=== PATIENT | female | born 1980 | race Caucasian/White ===

== ENCOUNTER → 2016-07-22 | Outpatient (CLI) | payer OTHER | LOC: LABWHC1 09:25 | PROVIDERS: ATTEND Obstetrics & Gynecology | DX: Z13.29 Encounter for screening for other suspected endocrine disorder (principal); Z13.1 Encounter for screening for diabetes mellitus; Z13.220 Encounter for screening for lipoid disorders | CPT/HCPCS: 36415; 80061; 82947; 84439; 84443 ==

== ENCOUNTER → 2016-07-26 | Outpatient (CLI) | payer OTHER ==
--- NOTE | 2016-07-27 07:47 | MM ---
Reason for exam: screening (asymptomatic). Baseline mammogram. Physical Findings: Nurse did not find any significant physical abnormalities on exam. MG 3D Screening Mammo W/Cad Bilateral CC and MLO view(s) were taken. The breast tissue is extremely dense which could obscure a lesion on mammography. Finding: There is a typically benign 6 mm equal density (isodense), circumscribed round mass located 5 cm from the nipple in the upper inner quadrant, posterior position of the right breast consistent with probable lymph node. These results were verbally communicated with the patient and result sheet given to the patient on 07/26/16. ASSESSMENT: Probably benign, BI-RAD 3 RECOMMENDATION: Follow-up diagnostic mammogram of the right breast in 6 months.
== END | disposition home or self-care (01) ==
LOC: RADMAMWWP 14:56
PROVIDERS: ATTEND Obstetrics & Gynecology
DX: Z12.31 Encounter for screening mammogram for malignant neoplasm of breast (principal)
CPT/HCPCS: 77063; G0202

== ENCOUNTER → 2016-09-29 | Outpatient (CLI) | payer OTHER ==
[2016-09-29 13:59] LABS: CH 32.6; CHCM 35.2; HCT 40.9 % (34.0-46.0); HGB 14.1 gm/dL (11.4-16.0); MCH 31.9 pg (25.0-35.0); MCHC 34.4 g/dL (31.0-37.0); MCV 92.7 fL (80.0-100.0); Mean Platelet Volume 8.5; RBC 4.41 m/uL (3.80-5.40); RDW 12.4 % (11.5-15.5); WBC 10.6 k/uL (3.8-10.6)
[2016-09-29 14:25] LABS: Glucose 83 mg/dL (74-99); Non-African American GFR(MDRD) >60 (>60 ml/min/1.73 sqM)
[2016-09-29 14:55] LABS: Hepatitis B Surface Ag Index 0.06
[2016-09-30 07:29] LABS: HIV-1/HIV-2 Ab Screen NONREAC (NON REAC)
== END | disposition home or self-care (01) ==
LOC: LABWHC1 13:39
PROVIDERS: ATTEND Obstetrics & Gynecology
DX: Z34.81 Encounter for supervision of other normal pregnancy, first trimester (principal)
CPT/HCPCS: 36415; 82565; 82947; 85027; 86762; 86780; 86850; 86900; 86901; 87340; 87389

== ENCOUNTER → 2017-02-01 | Outpatient (CLI) | payer OTHER ==
[2017-02-01 17:33] LABS: CH 33.8; CHCM 34.3; HCT 38.5 % (34.0-46.0); HDW 2.57; HGB 13.1 gm/dL (11.4-16.0); MCH 33.6 pg (25.0-35.0); MCHC 33.9 g/dL (31.0-37.0); MCV 99.1 fL (80.0-100.0); Mean Platelet Volume 8.9; RBC 3.89 m/uL (3.80-5.40); RDW 13.6 % (11.5-15.5); WBC 7.8 k/uL (3.8-10.6)
== END | disposition home or self-care (01) ==
LOC: LABWHC1 16:17
PROVIDERS: ATTEND Obstetrics & Gynecology
DX: Z34.82 Encounter for supervision of other normal pregnancy, second trimester (principal); Z3A.00 Weeks of gestation of pregnancy not specified
CPT/HCPCS: 36415; 82950; 85027

== ENCOUNTER 2017-03-17 09:55 | Outpatient (CLI) | payer OTHER ==
[2017-03-17 10:15] VITALS: BP 122/69; PULSE 89; RESP 18; TEMP 99
--- NOTE | 2017-03-20 19:34 | P.MSEPDOC ---
Presenting Problems - Arrival Data Date of Arrival on Unit: 03/17/17 Time of Arrival on Unit: 10:00 Mode of Transport: Ambulatory - Complaint OB-Reason for Admission/Chief Complaint: NST Comment: Pt sent to triage with order for NST, usually has done in office, office is closed today. NST's ordered for Advanced maternal age and resolving echogenic bowel. Medical History - Information : 3 Para: 2 Term: 2 : 0 Abortions: Spontaneous or Elective: 0 Number of Living Children: 2 - Gestational Age Gestational Age by NICOLETTE (wks/days): 33 Weeks and 6 Days Review of Systems - Review of Systems Constitutional: No problems Breast: No problems ENT: No problems Cardiovascular: No problems Respiratory: No problems Gastrointestinal: No problems Genitourinary: No problems Musculoskeletal: No problems Neurological: No problems Skin: No problems Vital Signs - Temperature Temperature: 99.0 F Temperature Source: Temporal Artery Scan - Pulse Pulse Oximetery Pulse Rate: 89 Pulse Assessment Method: Automatic Cuff - Respirations Respiratory Rate: 18 Oxygen Delivery Method: Room Air - Blood Pressure Right Arm Blood Pressure: 122/69 Blood Pressure Mean: 86 Blood Pressure Source: Automatic Cuff Medical Screen Scoring (Pre) - Cervical Exam Dilation: Exam Deferred - Uterine Contractions Frequency: N/A Duration: N/A Intensity: N/A - Maternal Vital Signs Maternal Temperature: N/A Maternal Blood Pressure: N/A Signs of Preeclampsia: N/A Maternal Respirations: N/A - Pain Assessment Pain Scale Used: Numeric (1 - 10) Pain Intensity: 0 - Maternal Trauma Maternal Trauma: N/A - Assessment Baseline FHR: 125 Heart Rate - NICHD Category: Category I (Normal) = 0 NST: Reactive Position: N/A Station: N/A - Total Score Total Score (Pre): 0 - Level of Risk Level of Risk: Low (0-5) Physician Notification (Pre) - Physician Notified Physician Notified Date: 03/17/17 Physician Notified Time: 10:25 Physician/Practitioner Notifed:: Dr Man Crisostomo Order Received: Yes - Notification Comment Comment: Reactive NST- Ok to discharge pt home Disposition - Disposition OB Disposition: Discharge to home Discharge Date: 03/17/17 Discharge Time: 10:40 I agree with the RN Medical Screening Exam: Yes Risk & Benefit of care provided described in d/c instruction: Yes Diagnosis: SUPERVISION OF ELDERLY MULTIGRAVIDA, THIRD TRIMESTER
== END 2017-03-17 10:40 | disposition home or self-care (01) ==
LOC: FBPOP 09:55
PROVIDERS: ATTEND Obstetrics & Gynecology
DX: O09.523 Supervision of elderly multigravida, third trimester (principal); Z3A.33 33 weeks gestation of pregnancy
CPT/HCPCS: 59025

== ENCOUNTER → 2017-04-14 | Outpatient (CLI) | payer OTHER | END | disposition home or self-care (01) | LOC: FBPOP 12:59 | PROVIDERS: ATTEND Obstetrics & Gynecology | DX: O09.523 Supervision of elderly multigravida, third trimester (principal) | CPT/HCPCS: 59025; 99213 ==

== ENCOUNTER 2017-04-22 16:36 | Outpatient (CLI) | payer OTHER ==
[2017-04-22 17:11] VITALS: BP 124/80; PULSE 93; RESP 16; TEMP 97.2
[2017-04-22 17:16] LABS: Appearance,Urine Cloudy (Clear); Bacteria,Urine Rare /hpf; Bilirubin,Urine Negative (Negative); Blood,Urine Negative (Negative); Color,Urine Yellow; Glucose,Urine (UA) Negative (Negative); Ketones,Urine 4+ (Negative); Leukocyte Esterase,Urine Large (Negative); Mucus,Urine Moderate /hpf; Nitrite,Urine Negative (Negative); Protein,Urine 1+ (Negative); RBC,Urine 7 /hpf (0-5); Specific Gravity,Urine 1.028 (1.001-1.035); Squamous Epithelial Cell,Urine 18 /hpf (0-4); Urobilinogen,Urine <2.0 mg/dL (<2.0); WBC,Urine 63 /hpf (0-5)
--- NOTE | 2017-04-25 08:37 | P.MSEPDOC ---
Presenting Problems - Arrival Data Date of Arrival on Unit: 04/22/17 Time of Arrival on Unit: 16:35 Mode of Transport: Ambulatory - Complaint OB-Reason for Admission/Chief Complaint: Other Comment: vomiting since 3 pm. contx. dilated in office on last visit. scheduled induction on monday. "not feeling well" Medical History - Information : 3 Para: 2 Term: 2 : 0 Abortions: Spontaneous or Elective: 0 Number of Living Children: 2 - Gestational Age Gestational Age by NICOLETTE (wks/days): 39 Weeks and 0 Days - History Comment: vomiting today. not feeling well. contx. Review of Systems - Review of Systems Constitutional: No problems Breast: No problems ENT: No problems Cardiovascular: No problems Respiratory: No problems Gastrointestinal: No problems Genitourinary: No problems Musculoskeletal: No problems Neurological: No problems Skin: No problems Vital Signs - Temperature Temperature: 97.2 F Temperature Source: Tympanic - Pulse Right Radial Pulse Rate: 93 Pulse Assessment Method: Automatic Cuff - Respirations Respiratory Rate: 16 - Blood Pressure Right Arm Blood Pressure: 124/80 Blood Pressure Mean: 94 Blood Pressure Source: Automatic Cuff Medical Screen Scoring (Pre) - Cervical Exam Dilation: Exam Deferred Effacement: Exam Deferred Membranes: Intact - Uterine Contractions Frequency: > 5 minutes apart = 1 - Maternal Vital Signs Maternal Temperature: N/A Maternal Blood Pressure: N/A Signs of Preeclampsia: N/A Maternal Respirations: N/A - Pain Assessment Pain Location and Character: Lower, Abdomen Pain Scale Used: Numeric (1 - 10) Pain Intensity: 3 Pain Description: Aching, Cramping Pain Frequency: Constant Pain Behavior: Vocalization, Vomiting Pain Aggravating Factors: Position - Maternal Trauma Maternal Trauma: N/A - Assessment Baseline FHR: 130 Heart Rate - NICHD Category: Category I (Normal) = 0 Position: N/A - Total Score Total Score (Pre): 1 Medical Screen Scoring (Post) - Cervical Exam Dilation: 0 cm = 0 Membranes: Intact - Uterine Contractions Frequency: > 5 minutes apart = 1 Duration: N/A Intensity: N/A - Maternal Vital Signs Maternal Temperature: N/A Maternal Blood Pressure: N/A Signs of Preeclampsia: N/A Maternal Respirations: N/A - Pain Assessment Pain Intensity: 0 Pain Management Goal: 0 - Maternal Trauma Maternal Trauma: N/A - Total Score Total Score (Post): 1 - Post Treatment Level of Risk Post Treatment Level of Risk: Low (0-5) Physician Notification (Post) - Physician Notified Physician Notified Date: 04/22/17 Physician Notified Time: 18:00 Physician/Practitioner Notified:: Dr Conway Spoke With: Dr Conway New Order Received: Yes - Notification Comment Comment: cervix remains 3.5/70, irregular contractions, pain 310, pt feeling hungry and requesting ice chips. Offered to stay in triage x one hour and pt request dc home. Disposition - Disposition OB Disposition: Discharge to home Discharge Date: 04/22/17 Discharge Time: 18:07 I agree with the RN Medical Screening Exam: Yes Risk & Benefit of care provided described in d/c instruction: Yes Diagnosis: FALSE LABOR AT OR AFTER 37 COMPLETED WEEKS OF GESTATION
== END 2017-04-22 18:20 | disposition home or self-care (01) ==
LOC: FBPOP 16:36
PROVIDERS: ATTEND Obstetrics & Gynecology
DX: O47.1 False labor at or after 37 completed weeks of gestation (principal); O21.2 Late vomiting of pregnancy; Z3A.39 39 weeks gestation of pregnancy
CPT/HCPCS: 59025; 81001; 99213

== ENCOUNTER → 2017-10-06 | Outpatient (CLI) | payer OTHER ==
--- NOTE | 2017-10-09 08:34 | MM ---
Reason for exam: additional evaluation requested from prior study. Last mammogram was performed 1 year and 2 months ago. Physical Findings: Nurse did not find any significant physical abnormalities on exam. MG 3D Diag Mammo W/Cad [facility]LIN Bilateral CC and MLO view(s) were taken. Prior study comparison: July 26, 2016, bilateral MG 3d screening mammo w/cad. The breast tissue is extremely dense which could obscure a lesion on mammography. No suspicious abnormality. The previously seen circumscribed right mass is no longer visualized and may have represented a lymph node or cyst, likely resolved. These results were verbally communicated with the patient and result sheet given to the patient on 10/06/17. ASSESSMENT: Negative, BI-RAD 1 RECOMMENDATION: Routine screening mammogram of both breasts at age 41. (or sooner if clinically indicated)
== END | disposition home or self-care (01) ==
LOC: RADMAMWWP 13:41
PROVIDERS: ATTEND Obstetrics & Gynecology
DX: R92.8 Other abnormal and inconclusive findings on diagnostic imaging of breast (principal)
CPT/HCPCS: 77062; 77066

== ENCOUNTER → 2019-02-07 | Outpatient (CLI) | payer OTHER | END | disposition home or self-care (01) | LOC: LABWHC1 16:31 | PROVIDERS: ATTEND Obstetrics & Gynecology | DX: Z53.9 Procedure and treatment not carried out, unspecified reason (principal) ==

== ENCOUNTER → 2019-02-07 | Outpatient (CLI) | payer OTHER ==
[2019-02-07 18:00] LABS: T4, Free (Free Thyroxine) 0.78 ng/dL (0.78-2.19)
--- NOTE | 2019-02-08 07:19 | US ---
EXAMINATION TYPE: US pelvis complete transvag DATE OF EXAM: 02/07/2019 COMPARISON: NONE CLINICAL HISTORY: N92.1 Breakthru bleeding w/IUD,. Intermittent spotting since 12/10. IUD placement 1. 5 years ago. Bloating TECHNIQUE: Transvaginal (TV) and Transabdominal (TA) . Transabdominal sonographic images of the pel vis were acquired. Transvaginal sonographic images were medically necessary to better assess the fol lowing anatomy: IUD Date of LMP: 11/09 EXAM MEASUREMENTS: Uterus: 8.2 x 4.0 x 5.1 cm Endometrial Stripe: 0.5 cm Right Ovary: 4.0 x 1.9 x 1.8 cm Left Ovary: 2.8 x 1.8 x 1.8 cm 1. Uterus: Anteverted 2. Endometrium: IUD visualized within body of uterus. Fundal lesion is heterogenous and circumscribe d measuring 8.2 x 4.0 cm. 3. Right Ovary: follicles noted, physiologic 4. Left Ovary: follicles noted, physiologic 5. Bilateral Adnexa: appears wnl 6. Posterior cul-de-sac: trace amount of free fluid IMPRESSION: 1. Fundal lesion, likely leiomyoma that impresses on the endometrium. This could be intramural or sub serosal. 2. Intrauterine device is seen centrally and appropriately placed bridging the lower and upper uterin e segments. 3. Endometrial thickness is within normal limits for a premenopausal female.
== END ==
LOC: RADUSWWP 16:01
PROVIDERS: ATTEND Obstetrics & Gynecology
DX: N94.89 Other specified conditions associated with female genital organs and menstrual cycle (principal); Z97.5 Presence of (intrauterine) contraceptive device
CPT/HCPCS: 76830; 76856; 84439; 84443

== ENCOUNTER → 2020-03-17 | Outpatient (CLI) | payer OTHER ==
--- NOTE | 2020-03-18 07:12 | US ---
EXAMINATION TYPE: US pelvic complete DATE OF EXAM: 03/17/2020 COMPARISON: US 2019 CLINICAL HISTORY: N92.1 METRORRHAGIA. Abnormal bleeding for the past couple weeks, 3, para 3, patient has IUD. TECHNIQUE: . Transabdominal sonographic images of the pelvis were acquired. Date of LMP: 02/17/2020 EXAM MEASUREMENTS: Uterus: 9.1 x 4.1 x 5.0 cm Endometrial Stripe: 0.5 cm Right Ovary: 6.2 x 4.2 x 4.9 cm Left Ovary: 2.7 x 1.8 x 2.8 cm 1. Uterus: anteverted 2. Endometrium: IUD seen in place 3. Right Ovary: 2 cysts with largest measuring 3.8 x 4.1 x 4.3cm 4. Left Ovary: wnl 5. Bilateral Adnexa: wnl 6. Posterior cul-de-sac: wnl IMPRESSION: 1. IUD is appropriately placed. 2. Probable functional ovarian cysts. This can be confirmed with follow-up study in 6 weeks.
== END | disposition home or self-care (01) ==
LOC: RADUSWWP 15:35
PROVIDERS: ATTEND Obstetrics & Gynecology
DX: N92.1 Excessive and frequent menstruation with irregular cycle (principal); Z97.5 Presence of (intrauterine) contraceptive device
CPT/HCPCS: 76856

== ENCOUNTER → 2020-04-28 | Outpatient (CLI) | payer OTHER ==
--- NOTE | 2020-04-28 15:53 | US ---
EXAMINATION TYPE: US pelvic complete DATE OF EXAM: 04/28/2020 COMPARISON: CLINICAL HISTORY: N83.0 Follicular cyst of ovary,RIGHT. Follow up right ovarian cyst. Patient has IU D. TECHNIQUE: Transabdominal (TA). Transabdominal sonographic images of the pelvis were acquired. Date of LMP: 03/08/2020, EXAM MEASUREMENTS: Uterus: 7.5 x 6.0 x 4.1 cm Endometrial Stripe: 0.3 cm Right Ovary: 3.5 x 1.7 x 1.8 cm Left Ovary: 3.0 x 2.1 x 1.6 cm 1. Uterus: Anteverted wnl 2. Endometrium: IUD visualized within endometrial cavity 3. Right Ovary: No cyst visualized on today's exam 4. Left Ovary: follicles seen 5. Bilateral Adnexa: wnl 6. Posterior cul-de-sac: no free fluid IMPRESSION: 1. IUD within the endometrial canal. 2. Ovarian follicles. Previous right ovarian cyst not identified
== END | disposition home or self-care (01) ==
LOC: RADUSWWP 09:50
PROVIDERS: ATTEND Obstetrics & Gynecology
DX: Z97.5 Presence of (intrauterine) contraceptive device (principal)
CPT/HCPCS: 76856

== ENCOUNTER → 2021-06-11 | Outpatient (CLI) | payer OTHER ==
--- NOTE | 2021-06-11 13:44 | MM ---
Reason for exam: additional evaluation requested from abnormal screening. Last mammogram was performed less than 1 month ago. Physical Findings: Nurse did not find any significant physical abnormalities on exam. MG 3D Work Up W/Cad LT CC with magnification, ML with magnification, and ML view(s) were taken of the left breast. Prior study comparison: June 07, 2021, bilateral MG 3d screening mammo w/cad. October 06, 2017, bilateral MG 3d diag mammo w/cad [facility]. The breast tissue is heterogeneously dense. This may lower the sensitivity of mammography. Finding: There are indeterminate grouped/clustered calcifications in the upper outer quadrant of the left breast. These results were verbally communicated with the patient and result sheet given to the patient on 06/11/21. ASSESSMENT: Suspicious, BI-RAD 4 RECOMMENDATION: Stereotactic core biopsy of the left breast. Called Dr. Kerr's office with mammographic findings and has scheduled an appointment for the patient for 07/29/21 at 10:[address] Melchor. Biopsy scheduled for 07/09/21 at 8:00. PRELIMINARY REPORT CALLED AND FAXED TO DR. MELCHOR ON 06/11/21.
== END | disposition home or self-care (01) ==
LOC: RADMAMWWP 10:19
PROVIDERS: ATTEND Obstetrics & Gynecology
DX: R92.1 Mammographic calcification found on diagnostic imaging of breast (principal)
CPT/HCPCS: 77061; 77065

== ENCOUNTER → 2021-08-16 | Day surgery (SDC) | payer OTHER ==
[2021-08-12 14:46] VITALS: BMI 23.9
[~2021-08-16] MED LIST: ACETAMINOPHEN IV (For NPO) 1,000 MG/100 ML VIAL ONE; ACETAMINOPHEN TAB 500 MG TAB PO PRN; ALPRAZolam 0.25 MG TAB ONE; BUPIVACAIN-EPI 0.25%-1:200,000 30 ML VIAL ONE; DEXAMETHASONE SOD PHOSPHATE 4 MG/ML 1 ML VIAL ONE; HEPARIN SODIUM,PORCINE 5,000 UNIT/ML 1 ML VIAL ONE; HEPARIN SODIUM,PORCINE/PF 5,000 UNIT/0.5 ML SYRINGE SQ PRN; KETOROLAC 15 MG/ML 1 ML VIAL ONE; LACTATED RINGERS 1,000 ML BAG IV ONE; LACTATED RINGERS 300 ML IV ONE; LIDOCAINE 2% INJ 20 MG/ML (2 ML VIAL) ONE; METHYLENE BLUE 10 MG/ML (10 ML VIAL) ONE; MIDAZOLAM 2 MG/2 ML VIAL ONE; ONDANSETRON 4 MG/2 ML VIAL ONE; PHENYLEPHRINE-0.9% NACL SYG 1,000 MCG/10 ML SYRINGE ONE; PROPOFOL 10 MG/ML 20 ML VIAL IV ONE; Pre Op ABX Message 1 EACH MISC MISCELLANE ONE; SODIUM CHLORIDE 0.9% 100 ML BAG ONE; SUCCINYLCHOLINE CHLORIDE 100 MG/5 ML SYR IV ONE; ceFAZolin 1,000 MG VIAL ONE; fentaNYL (PF) 50 MCG/ML 2 ML AMP ONE
--- NOTE | 2021-08-16 11:57 | P.OP ---
Date of Procedure: 08/16/21 Procedure(s) Performed: PREOPERATIVE DIAGNOSIS: Left breast cancer POSTOPERATIVE DIAGNOSIS: Same PROCEDURE: Left Breast wire localization lumpectomy with sentinel lymph node biopsy SURGEON: Ruiz EBL: Minimal ANESTHESIA: General COMPLICATIONS: None OPERATIVE PROCEDURE: Patient was placed on the operating room table in the supine position. 2 mL of methylene blue was injected into the subareolar space. The breast was then massaged for 5 minutes. The breast was prepped and draped in usual sterile fashion. The right axilla was addressed at that time. The hot spot in the right axilla was identified. A small curvilinear incision was made using the scalpel. Dissection down through the subcutaneous tissues took place using electrocautery. Using the neoprobe I identified a total of 4 sentinel lymph nodes. 3 of these were blue in color. These had benign exam characteristics. These were all removed and sent to pathology for permanent sectioning. The surgical site was inspected and no bleeding was seen. The subcutaneous tissues were closed using 3-0 Vicryl sutures. The skin was closed using 4-0 Monocryl sutures. The wire entrance site was then addressed. This was present at the 12:00 location. A curvilinear incision was made adjacent to the areola. The subcutaneous tissues were dissected until we got to the wire entrance site. The wire was then pulled into our incision. I followed the wire down into the breast tissue. An adequate lumpectomy specimen then took place around the wire. Margins of 1.5-2 cm worth attempted to be achieved. Palpation of the specimen suggested that the anterior margin was somewhat close. I took an additional margin anteriorly and this margin was painted the appropriate color on the new margin side. The initial specimen was also painted the appropriate 6 colors. Clips were used to identify the lumpectomy cavity. The clip was confirmed to be within the lumpectomy specimen by radiology. The subcutaneous tissues were closed using 3-0 Vicryl sutures. The skin was closed using a running 4-0 Monocryl stitch. Skin glue was then applied. DISPOSITION: Stable to recovery room
--- NOTE | 2021-08-16 15:54 | MM ---
EXAMINATION TYPE: MG pre op needle loc LT DATE OF EXAM: 08/16/2021 COMPARISON: NONE CLINICAL HISTORY: Abnormal biopsy results TECHNIQUE: Needle localization with wire placement and surgical excision of area of concern in the le ft breast. FINDINGS: The procedure of needle localization with wire placement and than surgical excision was exp lained to the patient. Benefits, alternatives, and risks were discussed. An informed consent was th en obtained. The shortest pathway for procedure was chosen. Shortest pathway was superior approach. The overlying skin was prepped and draped in usual sterile fashion. Lidocaine was used as anesthetic into the ski n and subcutaneous tissue up to the level of area of concern. A 5 cm needle was used. It was placed via a superior approach under mammographic guidance. Subsequent 90 degrees mammogram show the needl e to be in satisfactory position relative to the targeted area. At this point, wire was placed and t he needle was withdrawn. The wire was fixed to patient's skin. Report was called to the surgeon. Due to technical reasons, images could not be electronically transferred at this time. The patient tolerated the procedure well without any immediate complication. The patient was kept in the radiology department for short stay after the procedure for sentinel node injection and then jeanie en to surgery for surgical excision. Specimen: Targeted surgical marker and wire are identified in specimen mammogram. IMPRESSION: 1. Successful localization and excision left breast core marker. Recommendations: 1. Recommendations are pending pathology results.
--- NOTE | 2021-08-18 08:51 | NM ---
EXAMINATION TYPE: NM sentinel node injection DATE OF EXAM: 08/17/2021 COMPARISON: NONE INDICATION: Abnormal mammogram. Informed consent was obtained. A timeout was performed. The area around the left nipple was cleansed with alcohol. In a single dose, a total of 530 uCi Dorothy hnetium 99m Tilmanocept was injected. The patient tolerated the procedure very well. IMPRESSIONS: 1. Successful injection for sentinel node evaluation.
== END ==
LOC: OR 06:45
PROVIDERS: ATTEND Surgery
DX: D05.10 Intraductal carcinoma in situ of unspecified breast (principal); Z98.890 Other specified postprocedural states; Z82.49 Family history of ischemic heart disease and other diseases of the circulatory system; F41.9 Anxiety disorder, unspecified
CPT/HCPCS: 19301; 38525; 81025; 76098; 19281; 38792; A9520; J2250; J1644; J1100; J2405; J0690; Q9968; J3010; J0131; J1885; J2370; J0330; J2704; J2001

== ENCOUNTER 2021-09-06 08:52 | Day surgery (SDC) | payer OTHER ==
[2021-09-02 13:05] VITALS: BMI 23.5
[~2021-09-06 08:52] MED LIST changes: -ACETAMINOPHEN IV (For NPO) 1,000 MG/100 ML VIAL ONE; -ACETAMINOPHEN TAB 500 MG TAB PO PRN; -ALPRAZolam 0.25 MG TAB ONE; -BUPIVACAIN-EPI 0.25%-1:200,000 30 ML VIAL ONE; +DEXAMETHASONE SOD PHOSPHATE 4 MG/ML 1 ML VIAL IV ONE; -DEXAMETHASONE SOD PHOSPHATE 4 MG/ML 1 ML VIAL ONE; -HEPARIN SODIUM,PORCINE 5,000 UNIT/ML 1 ML VIAL ONE; -HEPARIN SODIUM,PORCINE/PF 5,000 UNIT/0.5 ML SYRINGE SQ PRN; +HYDROmorphone 0.5 MG/0.5 ML SYRINGE IVP PRN; -KETOROLAC 15 MG/ML 1 ML VIAL ONE; -LACTATED RINGERS 1,000 ML BAG IV ONE; +LACTATED RINGERS 1,000 ML IV SCH; -LACTATED RINGERS 300 ML IV ONE; -LIDOCAINE 2% INJ 20 MG/ML (2 ML VIAL) ONE; -METHYLENE BLUE 10 MG/ML (10 ML VIAL) ONE; +MIDAZOLAM 2 MG/2 ML VIAL IV PRN; -MIDAZOLAM 2 MG/2 ML VIAL ONE; +ONDANSETRON 4 MG/2 ML VIAL IVP ONE; -ONDANSETRON 4 MG/2 ML VIAL ONE; -PHENYLEPHRINE-0.9% NACL SYG 1,000 MCG/10 ML SYRINGE ONE; -PROPOFOL 10 MG/ML 20 ML VIAL IV ONE; +SCOPOLAMINE 1 MG/72 HR PATCH TRANSDERM ONE; -SODIUM CHLORIDE 0.9% 100 ML BAG ONE; -SUCCINYLCHOLINE CHLORIDE 100 MG/5 ML SYR IV ONE; -ceFAZolin 1,000 MG VIAL ONE; -fentaNYL (PF) 50 MCG/ML 2 ML AMP ONE
[2021-09-06] MEDS ORDERED: LACTATED RINGERS 1,000 ML IV ONE (09:30)
[2021-09-06] MEDS ORDERED: fentaNYL (PF) 50 MCG/ML 2 ML AMP ONE (10:34)
[2021-09-06] MEDS ORDERED: PROPOFOL 10 MG/ML 20 ML VIAL IV ONE (10:34)
[2021-09-06] MEDS ORDERED: LIDOCAINE 2% INJ 20 MG/ML (2 ML VIAL) ONE (10:34)
[2021-09-06] MEDS ORDERED: MIDAZOLAM 2 MG/2 ML VIAL ONE (10:34)
[2021-09-06] MEDS ORDERED: BUPIVACAINE (PF) 0.25% 30 ML VIAL SQ ONE (10:39)
[2021-09-06] MEDS ORDERED: ceFAZolin 1,000 MG VIAL IVPB ONE (10:54)
[2021-09-06] MEDS ORDERED: traMADol 50 MG TAB PO PRN (11:31)
[2021-09-06] MEDS ORDERED: NALOXONE 0.4 MG/ML 1 ML VIAL IV PRN (11:31)
--- NOTE | 2021-09-06 11:34 | P.OP ---
Date of Procedure: 09/06/21 Procedure(s) Performed: PREOPERATIVE DIAGNOSIS: Left breast cancer POSTOPERATIVE DIAGNOSIS: Same PROCEDURE: Left breast re-lumpectomy SURGEON: Ruiz EBL: 10 mL ANESTHESIA: General COMPLICATIONS: None OPERATIVE PROCEDURE: Patient was placed on the operating room table in the supine position. The left breast was prepped and draped sterilely. The previous incision was re-incised using the scalpel. Instruments into a subcutaneous hematoma cavity took place and the hematoma was evacuated. Approximately 20 mL of old blood was removed. A few of the old deeper Vicryl sutures were removed. The lumpectomy cavity was well visualized at that point. A new margin was then removed encompassing the inferior and posterior margin. This had a varying thickness of approximately 6-10 mm. The new edge was painted the inferior and posterior appropriate colors green and purple. Clips were used to delineate the lumpectomy cavity. The area was thoroughly irrigated with saline. No active bleeding was seen. The subcutaneous tissues were closed using interrupted 20 and 3-0 Vicryl sutures. The skin was closed using a running 4-0 Monocryl stitch. Skin glue was then applied. DISPOSITION: Stable to recovery room
[2021-09-06 11:45] VITALS: TEMP 97.5
[2021-09-06 12:33] VITALS: RESP 18
[2021-09-06 12:45] VITALS: BP 126/81; PULSE 83
== END 2021-09-06 13:00 | disposition home or self-care (01) ==
LOC: OR 08:52
PROVIDERS: ATTEND Surgery
DX: D05.12 Intraductal carcinoma in situ of left breast (principal); Z98.890 Other specified postprocedural states; Z82.49 Family history of ischemic heart disease and other diseases of the circulatory system
CPT/HCPCS: 81025; 19301; J2250; J1100; J2405; J0690; J3010; J2704; J1170; J2001; 88307; 88341; 88342

== ENCOUNTER → 2021-10-04 | Outpatient (CLI) | payer OTHER | END | disposition home or self-care (01) | LOC: LABWHC1 09:48 | PROVIDERS: ATTEND Radiology Radiation Oncology | DX: Z01.812 Encounter for preprocedural laboratory examination (principal); D05.12 Intraductal carcinoma in situ of left breast; Z17.1 Estrogen receptor negative status [ER-] | CPT/HCPCS: 81025 ==

== ENCOUNTER → 2021-10-27 | Outpatient (CLI) | payer OTHER ==
--- NOTE | 2021-10-27 15:39 | US ---
EXAMINATION TYPE: US pelvic complete DATE OF EXAM: 10/27/2021 COMPARISON: 03/17/2020 CLINICAL HISTORY: N94.6 DYSMENORRHEA, UNSPECIFIED. history of breast cancer. IUD TECHNIQUE: Transabdominal (TA). Date of LMP: 10/11/21 EXAM MEASUREMENTS: Uterus: 8.0 x 4.6 x 7.0 cm Endometrial Stripe: 0.6 cm Right Ovary: 4.0 x 1.7 x 2.0 cm Left Ovary: 5.1 x 2.4 x 2.5 cm 1. Uterus: IUD visualized within body/fundus 2. Endometrium: appears wnl 3. Right Ovary: follicles noted 4. Left Ovary: complex area = 2.7 x 1.8 x 1.9 cm without internal color Doppler flow. 5. Bilateral Adnexa: wnl 6. Posterior cul-de-sac: small amount of free fluid IMPRESSION: 1. IUD visualized within the endometrium. 2. Suspected left ovarian hemorrhagic follicle.
== END | disposition home or self-care (01) ==
LOC: RADUSWWP 12:17
PROVIDERS: ATTEND Obstetrics & Gynecology
DX: N94.6 Dysmenorrhea, unspecified (principal)
CPT/HCPCS: 76856

== ENCOUNTER → 2022-09-05 | Outpatient (CLI) | payer OTHER ==
--- NOTE | 2022-09-05 11:45 | USB ---
Reason for Exam: Follow-up at short interval from prior study. Patient History: Menarche at age 14. First Full-Term at age 29. Breast cancer, left, age 41. 08/16/2021, Lumpectomy on the Left side. 08/16/2021, Malignant Core Biopsy on the left side. 07/09/2021, Malignant Core Biopsy on the left side. 2021, Radiation Therapy on the left side. Technique: Method: Targeted. Prior Study Comparison: 06/07/2021 Bilateral Screening Mammogram, [facility]. 06/11/2021 Left Diagnostic Mammogram, [facility]. 06/06/2022 Bilateral US breast limited BILAT, [facility]. 06/06/2022 Bilateral MG 3D diag mammo w/cad [facility]LIN, [facility]. Findings: The upper section of the breast of the left breast, the axilla of the left breast and the retroareolar of the left breast were scanned. Lumpectomy site is hypoechoic with some shadowing. Echogenic foci compatible surgical clips are present. Developing mass is not clearly identified. Subtle changes may not be visualized the postsurgical changes. Previous seroma site is diminished in size and may contain internal echoes. This measures approximately 1.5 x 0.6 x 0.7 cm. Previous measurements 2.2 x 1.9 x 1.7 cm.. Overall Assessment: Probably benign, BI-RAD 3 Management: Diagnostic Mammogram of the left breast in 3 months. Diagnostic Breast Ultrasound of the left breast in 3 months. A clinical breast exam by your physician is recommended on an annual basis and results should be correlated with mammographic findings. This exam should not preclude additional follow-up of suspicious palpable abnormalities. Results were given to the patient verbally at the time of exam. Electronically signed and approved by: Jorge Frost D.O. Radiologis
== END | disposition home or self-care (01) ==
LOC: RADUSWWP 11:01
PROVIDERS: ATTEND Surgery
DX: C50.912 Malignant neoplasm of unspecified site of left female breast (principal)

== ENCOUNTER → 2022-12-07 | Outpatient (CLI) | payer OTHER ==
--- NOTE | 2022-12-07 12:45 | USB ---
Reason for Exam: Follow-up at short interval from prior study. Patient History: Menarche at age 14. First Full-Term at age 29. Breast cancer, left, age 41. 08/16/2021, Lumpectomy on the Left side. 08/16/2021, Malignant Core Biopsy on the left side. 07/09/2021, Malignant Core Biopsy on the left side. 2021, Radiation Therapy on the left side. Technique: Method: Targeted. Prior Study Comparison: 06/07/2021 Bilateral Screening Mammogram, [facility]. 06/11/2021 Left Diagnostic Mammogram, [facility]. 06/06/2022 Bilateral MG 3D diag mammo w/cad [facility], [facility]. Findings: The upper section of the breast of the left breast, the axilla of the left breast and the retroareolar of the left breast were scanned. There is a hypoechoic. There is some shadowing from surgical clips in this region. This is a transverse dimension of 1.3 cm and correlates with the lumpectomy site. Suspicious recurrence is not evident based on the ultrasound. Axillary region appears normal. Previous neuroma is not identified. Overall Assessment: Benign, BI-RAD 2 Management: Diagnostic Mammogram of both breasts in 1 year. A clinical breast exam by your physician is recommended on an annual basis and results should be correlated with mammographic findings. This exam should not preclude additional follow-up of suspicious palpable abnormalities. Results were given to the patient verbally at the time of exam. Electronically signed and approved by: Jorge Frost D.O. Radiologis
--- NOTE | 2022-12-07 13:47 | MM ---
Reason for Exam: Follow-up at short interval from prior study. Last screening mammogram was performed 6 month(s) ago. Patient History: Menarche at age 14. First Full-Term at age 29. Breast cancer, left, age 41. 08/16/2021, Lumpectomy on the Left side. 08/16/2021, Malignant Core Biopsy on the left side. 07/09/2021, Malignant Core Biopsy on the left side. 2021, Radiation Therapy on the left side. Last menstrual period: 11/16/2022 Prior Study Comparison: 06/07/2021 Bilateral Screening Mammogram, [facility]. 06/11/2021 Left Diagnostic Mammogram, [facility]. 06/06/2022 Bilateral MG 3D diag mammo w/cad [facility], [facility]. Tissue Density: Left: The breast tissue is heterogeneously dense. This may lower the sensitivity of mammography. Findings: Analyzed By CAD. Surgical clips are within the upper left breast. There appears to be a spiculated density at the anterior margin of the surgical clips on the craniocaudal view. Under compression this disperses normally. Underlying distortion is not identified. Short-term follow-up is recommended. No suspicious abnormality within the posterior left breast and a previous area of abnormality is identified. Overall Assessment: Incomplete: need additional imaging evaluation, BI-RAD 0 Management: Diagnostic Breast Ultrasound of the left breast. A negative mammogram report should not preclude additional follow up of suspicious palpable abnormalities. Patient should continue monthly self breast exam. A clinical breast exam by your physician is recommended on an annual basis and results should be correlated with mammographic findings. Electronically signed and approved by: Jorge Frost D.O. Radiologis
== END | disposition home or self-care (01) ==
LOC: RADMAMWWP 11:02
PROVIDERS: ATTEND Surgery
DX: R92.8 Other abnormal and inconclusive findings on diagnostic imaging of breast (principal); Z85.3 Personal history of malignant neoplasm of breast; Z90.12 Acquired absence of left breast and nipple
CPT/HCPCS: 77061; 77065

== ENCOUNTER → 2023-06-09 | Outpatient (CLI) | payer OTHER ==
--- NOTE | 2023-06-09 11:53 | MM ---
Reason for Exam: Hx of breast cancer, conservation therapy. Last screening mammogram was performed 12 month(s) ago. Patient History: Menarche at age 14. First Full-Term at age 29. Breast cancer, left, age 41. 08/16/2021, Lumpectomy on the Left side. 08/16/2021, Malignant Core Biopsy on the left side. 07/09/2021, Malignant Core Biopsy on the left side. 2021, Radiation Therapy on the left side. Tissue Density: The breast tissue is heterogeneously dense. This may lower the sensitivity of mammography. Findings: Analyzed By CAD. Postsurgical changes redemonstrated left breast. Punctate regional calcifications near remain unchanged. No progressive suspicious calcifications are seen. No significant change on the contralateral side. A prominent right axillary lymph node is unchanged as well. Overall Assessment: Probably benign, BI-RAD 3 Management: Diagnostic Mammogram of the left breast in 6 months. Ongoing short interval follow-up (total 2.5 year follow-up) to assess for any evolving posttreatment change. Results were given to the patient verbally at the time of exam. Patient should continue monthly self-breast exams. A clinical breast exam by your physician is recommended on an annual basis. This exam should not preclude additional follow-up of suspicious palpable abnormalities. Electronically signed and approved by: Eloisa Boateng M.D. Radiologist
== END | disposition home or self-care (01) ==
LOC: RADMAMWWP 10:46
PROVIDERS: ATTEND Surgery
DX: R92.333 Mammographic heterogeneous density, bilateral breasts (principal); Z85.3 Personal history of malignant neoplasm of breast
CPT/HCPCS: 77062; 77066

== ENCOUNTER 2023-06-13 09:19 | Day surgery (SDC) | payer OTHER ==
[~2023-06-13 09:19] MED LIST changes: -DEXAMETHASONE SOD PHOSPHATE 4 MG/ML 1 ML VIAL IV ONE; -HYDROmorphone 0.5 MG/0.5 ML SYRINGE IVP PRN; -LACTATED RINGERS 1,000 ML IV SCH; +LIDOCAINE 1% (10MG/ML) FOR IV START INTRADERMA PRN; -MIDAZOLAM 2 MG/2 ML VIAL IV PRN; -ONDANSETRON 4 MG/2 ML VIAL IVP ONE; -Pre Op ABX Message 1 EACH MISC MISCELLANE ONE; -SCOPOLAMINE 1 MG/72 HR PATCH TRANSDERM ONE
[2023-06-13] MEDS: LACTATED RINGERS 1,000 ML IV SCH (09:49)
[2023-06-13] MEDS ORDERED: PROPOFOL 10 MG/ML 20 ML VIAL IV ONE (10:07)
--- NOTE | 2023-06-13 10:11 | P.GSHP ---
History of Present Illness H&P Date: 06/13/23 Chief Complaint: Colon cancer screening, high risk 43-year-old female here for colonoscopy. Family history of colon cancer in her father. Patient with personal history of left breast cancer. No rectal bleeding or melena. Past Medical History Past Medical History: Cancer Additional Past Medical History / Comment(s): LEFT BREAT CANCER History of Any Multi-Drug Resistant Organisms: None Reported Past Surgical History: Breast Surgery Additional Past Surgical History / Comment(s): LEFT LUMPECTOMY AND RADIATION LEEP colposcopy-2009 Past Anesthesia/Blood Transfusion Reactions: No Reported Reaction Past Psychological History: No Psychological Hx Reported Smoking Status: Never smoker Past Alcohol Use History: Occasional Past Drug Use History: None Reported - Past Family History Father Family Medical History: Hyperlipidemia, Hypertension Mother Family Medical History: Hyperlipidemia, Hypertension Medications and Allergies Home Medications Medication Instructions Recorded Confirmed Type ALPRAZolam [Xanax] 0.25 mg PO DAILY PRN 08/12/21 06/13/23 History Allergies Allergy/AdvReac Type Severity Reaction Status Date / Time sulfamethoxazole AdvReac Rash/Hives Verified 06/13/23 10:03 [From Septra] trimethoprim [From Septra] AdvReac Rash/Hives Verified 06/13/23 10:03 Surgical - Exam Vital Signs Temp Pulse Resp BP Pulse Ox 97.9 F 87 16 128/82 99 06/13/23 10:00 06/13/23 10:00 06/13/23 10:00 06/13/23 10:00 06/13/23 10:00 Physical exam: General: Well-developed, well-nourished HEENT: Normocephalic, sclerae nonicteric Abdomen: Nontender, nondistended Extremities: No edema Neuro: Alert and oriented Assessment and Plan (1) Colon cancer screening Narrative/Plan: Will proceed with colonoscopy at this time Current Visit: Yes Status: Acute Code(s): Z12.11 - ENCOUNTER FOR SCREENING FOR MALIGNANT NEOPLASM OF COLON SNOMED Code(s): 419845755
[2023-06-13 10:29] VITALS: TEMP 97.9
--- NOTE | 2023-06-13 10:29 | P.PCN ---
Date of Procedure: 06/13/23 Procedure(s) Performed: PREOPERATIVE DIAGNOSIS: Colon cancer screening, family history of colon cancer in father POSTOPERATIVE DIAGNOSIS: Small cecal polyp PROCEDURE: Colonoscopy with snare polypectomy ANESTHESIA: MAC SURGEON: Ankur Melchor M.D. SPECIMENS: Polyp ENDOSCOPIC PROCEDURE: The patient was placed on the endoscopy table in the left decubitus position. The Olympus colonoscope was inserted into the anus and passed under direct visualization to the base of the cecum. The appendiceal orifice was visualized. From that point the scope was slowly withdrawn inspecting all surfaces carefully. There was noted to be a small polyp at the base of the cecum. This measured only about 4 to 5 mm in size. This was removed using the snare with cautery technique. The remainder of the cecum ascending transverse descending sigmoid and rectum appeared normal. There was no visible diverticulosis. Digital rectal examination was normal. The patient was taken to the recovery room in stable condition per anesthesia guidelines. RECOMMENDATIONS: Resume diet. Await biopsy results. Tentatively plan follow-up colonoscopy 5 years.
[2023-06-13 11:06] VITALS: BP 107/66; PULSE 78
[2023-06-13 11:07] VITALS: RESP 18
== END 2023-06-13 11:06 | disposition home or self-care (01) ==
LOC: ORWHC2ENDO 09:19
PROVIDERS: ATTEND Surgery
DX: Z12.11 Encounter for screening for malignant neoplasm of colon (principal); D12.0 Benign neoplasm of cecum; F10.90 Alcohol use, unspecified, uncomplicated; Z80.0 Family history of malignant neoplasm of digestive organs; Z85.3 Personal history of malignant neoplasm of breast; Z98.890 Other specified postprocedural states; Z82.49 Family history of ischemic heart disease and other diseases of the circulatory system; Z83.49 Family history of other endocrine, nutritional and metabolic diseases; Z88.1 Allergy status to other antibiotic agents; Z88.2 Allergy status to sulfonamides; Z79.899 Other long term (current) drug therapy
CPT/HCPCS: 81025; 88305; 45385; J2704

== ENCOUNTER → 2023-12-26 | Outpatient (CLI) | payer OTHER ==
--- NOTE | 2023-12-26 15:00 | MM ---
Reason for Exam: Follow-up at short interval from prior study. Last screening mammogram was performed 7 month(s) ago. Patient History: Menarche at age 14. First Full-Term at age 29. Premenopausal. Breast cancer, left, age 41. 08/16/2021, Lumpectomy on the Left side. 08/16/2021, Malignant Core Biopsy on the left side. 07/09/2021, Malignant Core Biopsy on the left side. 2021, Radiation Therapy on the left side. Prior Study Comparison: 06/06/2022 Bilateral MG 3D diag mammo w/cad [facility], [facility]. 12/07/2022 Left MG 3D diag mammo w/cad [facility], [facility]. 06/09/2023 Bilateral MG 3D diag mammo w/cad [facility], [facility]. Tissue Density: Left: The breasts are heterogeneously dense, which may obscure small masses. Findings: Analyzed By CAD. Left breast surgical clips. No new suspicious masses, calcifications or distortions. Overall Assessment: Benign, BI-RAD 2 Management: Diagnostic Mammogram of the left breast in 6 months. Results were given to the patient verbally at the time of exam. Patient should continue monthly self-breast exams. A clinical breast exam by your physician is recommended on an annual basis. This exam should not preclude additional follow-up of suspicious palpable abnormalities. Note on Amina scores and lifetime risk: 1. A Amina score greater than 3% is considered moderate risk. If this is the case, consider specialist referral to assess eligibility for a risk reducing agent. 2. If overall lifetime risk for the development of breast cancer is 20% or higher, the patient may qualify for future screening with alternating mammogram and breast MRI. Electronically signed and approved by: Ian Harper DO
== END | disposition home or self-care (01) ==
LOC: RADMAMWWP 14:43
PROVIDERS: ATTEND Surgery
DX: Z85.3 Personal history of malignant neoplasm of breast
CPT/HCPCS: 77061; 77065

== ENCOUNTER → 2024-06-25 | Outpatient (CLI) | payer OTHER ==
--- NOTE | 2024-07-04 13:19 | MM ---
Reason for Exam: Follow-up at short interval from prior study. Last mammogram was performed 1 year(s) and 1 month(s) ago. Patient History: Menarche at age 14. First Full-Term at age 29. Premenopausal. Breast cancer, left, age 41. Previous chest radiation therapy at age 41. 08/16/2021, Lumpectomy on the Left side. 08/16/2021, Malignant Core Biopsy on the left side. 07/09/2021, Malignant Core Biopsy on the left side. 2021, Radiation Therapy on the left side. Prior Study Comparison: 06/06/2022 Bilateral MG 3D diag mammo w/cad [facility], [facility]. 12/07/2022 Left MG 3D diag mammo w/cad [facility], [facility]. 06/09/2023 Bilateral MG 3D diag mammo w/cad [facility], [facility]. 12/26/2023 Left MG 3D diag mammo w/cad [facility], [facility]. Tissue Density: The breasts are heterogeneously dense, which may obscure small masses. Findings: Analyzed By CAD. Postsurgical and posttreatment changes left breast. Prominent lymph node in the right axilla remains unchanged. The previous asymmetric density that was being followed along the anterior margin of the surgical clips in the CC view has not persisted. No significant change from prior exams. Overall Assessment: Benign, BI-RAD 2 Management: Diagnostic Mammogram of both breasts in 1 year. Results were given to the patient verbally at the time of exam. Patient should continue monthly self-breast exams. A clinical breast exam by your physician is recommended on an annual basis. This exam should not preclude additional follow-up of suspicious palpable abnormalities. [facility], , 06/25/2024 11:24 AM. Electronically signed and approved by: Eloisa Boateng M.D. Radiologist
== END | disposition home or self-care (01) ==
LOC: RADMAMWWP 10:51
PROVIDERS: ATTEND Surgery
DX: R92.8 Other abnormal and inconclusive findings on diagnostic imaging of breast (principal); R92.333 Mammographic heterogeneous density, bilateral breasts; Z85.3 Personal history of malignant neoplasm of breast
CPT/HCPCS: 77062; 77066